=== PATIENT | female | born 1965 | race Two or more races ===

== ENCOUNTER 2024-11-03 17:04 | Emergency (ER) | payer OTHER ==
[~2024-11-03] VITALS: Ht 165.1 cm; Wt 71.7 kg
[2024-11-03] MEDS: KETOROLAC TROMETHAMINE 15 MG/ML VIAL IM ONE (19:00)
[2024-11-03] MEDS ORDERED: KETOROLAC TROMETHAMINE 15 MG/ML VIAL ONE ×2 (19:18→19:19)
[2024-11-03 19:27] VITALS: BP 154/84; TEMP 97.9; O2SAT 99
== END 2024-11-03 19:27 | disposition home or self-care (01) ==
LOC: ER 17:10
DX: S13.4XXA Sprain of ligaments of cervical spine, initial encounter (principal); M54.9 Dorsalgia, unspecified; R42 Dizziness and giddiness; R51.9 Headache, unspecified; V43.52XA Car driver injured in collision with other type car in traffic accident, initial encounter; Y93.89 Activity, other specified; Y92.488 Other paved roadways as the place of occurrence of the external cause; Y99.8 Other external cause status
CPT/HCPCS: 99283; 96372; J1885